=== PATIENT | male | born 1975 | race Caucasian/White ===

== ENCOUNTER 2019-06-08 14:04 | Inpatient (IN) | payer MEDICARE, MEDICAID ==
[~2019-06-08] VITALS: Ht 177.8 cm; Wt 65.5 kg
[2019-06-08 14:10] VITALS: BP 111/75
[2019-06-08 14:44] LABS: BASO % 0.3 % (0.0-1.0); EOS % 0.6 % (1.0-4.0); HEMATOCRIT 43.9 % (42.0-52.0); HEMOGLOBIN 14.7 g/dl (14.0-18.0); LYMPH # 0.8 10*3/uL (1.3-4.4); LYMPH % 11.9 % (27.0-41.0); MEAN CELL VOLUME 85.2 fl (80.0-94.0); MEAN CORPUSCULAR HGB 28.5 pg (27.0-31.0); MEAN CORPUSCULAR HGB CONC 33.5 g/dl (33.0-37.0); MEAN PLATELET VOLUME 9.6 fl (9.6-12.3); MONO # 0.9 10*3/uL (0.1-1.0); MONO % 13.2 % (3.0-9.0); NEUT % 73.7 % (47.0-73.0); PLATELET COUNT AUTOMATED 217 10*3/uL (130-400); RED BLOOD COUNT 5.15 10*6/uL (4.50-5.90); RED CELL DISTRI WIDTH 13.1 % (0-14.5); WHITE BLOOD COUNT 6.7 10*3/uL (4.8-10.8)
[2019-06-08 15:01] LABS: ALBUMIN 3.7 gm/dl (3.1-4.5); ALKALINE PHOSPHATASE 77 U/L (45-117); BUN 8 mg/dl (7-24); CHLORIDE 101 mmol/L (98-107); CREATININE 1.09 mg/dL (0.70-1.30); SGOT/AST 12 IU/L (3-35); SGPT/ALT 29 U/L (12-78); SODIUM 138 mmol/L (136-145); TOTAL PROTEIN 7.5 gm/dL (6.4-8.2)
[2019-06-08 15:08] LABS: ACETAMINOPHEN (TYLENOL) < 5.0 ug/ml (10-30); ETHYL ALCOHOL < 3.0 mg/dl (<3); TROPONIN I < 0.015 ng/ml (<0.045)
[2019-06-08 16:22] LABS: URINE AMPHETAMINES < 1000 (1000ng/ml); URINE BARBITURATES < 200 (200ng/ml); URINE BENZODIAZEPINES < 200 (200ng/ml); URINE CANNABINOIDS (THC) < 50 (50ng/ml); URINE COCAINE < 300 (300ng/ml); URINE METHADONE < 300 (300ng/ml); URINE OPIATES < 300 (300ng/ml)
[2019-06-08 16:25] LABS: URINE PHENCYCLIDINE < 25 (25ng/ml)
[2019-06-08 16:30] LABS: BILIRUBIN NEGATIVE (NEGATIVE); BLOOD TRACE-INTACT (NEGATIVE); CLARITY CLEAR (CLEAR); COLOR YELLOW (YELLOW); GLUCOSE NEGATIVE (NEGATIVE); KETONE NEGATIVE (NEGATIVE); SPECIFIC GRAVITY 1.015 (1.005-1.030); UROBILINOGEN 0.2 E.U./dl (0.2-1.0)
[2019-06-08 16:31] LABS: LEUKO ESTERASE 1+ (NEGATIVE); NITRITE POSITIVE (NEGATIVE)
[2019-06-08 16:32] LABS: EPITHELIAL CELLS 0-2
[2019-06-08 16:33] LABS: BACTERIA 4+
[2019-06-08] MEDS ORDERED: TRAZODONE50 MG PO (18:43)
[2019-06-08 20:10] VITALS: BP 111/96
--- NOTE | 2019-06-08 20:10 | NUR ---
A 44, admitted to 5E, under the services of ANA Cartagena DO with a diagnosis of UTI, METABOLIC ENCEPHALOPATHY Chief complaint is CHANGE IN MENTAL STATUS. Patient arrived via bed from ER. Monitor applied. Initial assessment completed. Vital signs taken and recorded. ANA CARTAGENA DO notified of admission to the unit. Orders received. See assessment for past medical history, medications and allergies. Patient and/or family oriented to unit. [facility] visitation policy reviewed. Clothing/patient valuable form completed. ROLDAN DIOP
--- NOTE | 2019-06-08 20:15 | NUR ---
PT HAS SCABS TO RIGHT LOWER LEG. NOTHING OPEN AT THIS TIME.
--- NOTE | 2019-06-08 20:30 | NUR ---
PT UNABLE TO VOICE MEDICATIONS. PER ANOTHER RN, MOTHER CALLED AND STATED [address] DAN NOTIFIED.
--- NOTE | 2019-06-08 21:00 | NUR ---
The assessment has been completed. NATI PARKS
[2019-06-09] VITALS: BP 96/67
--- NOTE | 2019-06-09 01:12 | NUR ---
PER DR. DAN, CHECK PT TEMPERATURE AT 0200. NO ORDERS AT THIS TIME
--- NOTE | 2019-06-09 02:05 | NUR ---
TYLENOL GIVEN PER ORDER FOR TEMP OF 100.8. SEE MAR
[2019-06-09 06:10] LABS: HEMATOCRIT 42.7 % (42.0-52.0); MEAN CELL VOLUME 84.6 fl (80.0-94.0); MEAN CORPUSCULAR HGB 27.7 pg (27.0-31.0); MEAN CORPUSCULAR HGB CONC 32.8 g/dl (33.0-37.0); MEAN PLATELET VOLUME 10.3 fl (9.6-12.3); PLATELET COUNT AUTOMATED 219 10*3/uL (130-400); RED BLOOD COUNT 5.05 10*6/uL (4.50-5.90); RED CELL DISTRI WIDTH 13.2 % (0-14.5); WHITE BLOOD COUNT 5.2 10*3/uL (4.8-10.8)
[2019-06-09 06:32] LABS: CHLORIDE 101 mmol/L (98-107); POTASSIUM 3.9 mmol/L (3.5-5.1); SODIUM 138 mmol/L (136-145)
[2019-06-09 06:38] LABS: BUN 9 mg/dl (7-24); CHOLESTEROL 159 mg/dL (<200); CREATININE 1.19 mg/dL (0.70-1.30); HDL CHOLESTEROL 45 mg/dl (40-60); LDL CHOLESTEROL 101 mg/dL (9-159); PHOSPHOROUS 4.3 mg/dL (2.5-4.9); TRIGLYCERIDES 64 mg/dl (<150); VLDL CHOLESTEROL 13 mg/dL (6-40)
[2019-06-09 07:48] LABS: VITAMIN D, 25-HYDROXY 36.3 ng/mL (30-100)
[2019-06-09 08:00] VITALS: BP 118/78
[2019-06-09 08:04] LABS: PLATELET SUFFICIENCY NORMAL (NORMAL); TOTAL CELLS COUNTED 100 #CELLS
[2019-06-09] MEDS ORDERED: AUSTEDO 9 MG (12:00)
[2019-06-09 16:00] VITALS: BP 148/75
--- NOTE | 2019-06-09 19:30 | NUR ---
PT RESTING IN BED. NO S/S OF DISTRESS NOTED. RESPS EASY AND NON LABORED. VSS. WHITE BOARD UPDATED. FAMILY AT BEDSIDE. SIDE RAILS UP. BED ALARM ON. CALL LIGHT WITHIN REACH.
--- NOTE | 2019-06-09 23:42 | NUR ---
WHEELCHAIR VAN [employer]PER[employer] STATES PT HAS A TEMP OF 101.6. MEDICATED WITH TYLENOL. WILL RE-CHECK IN TWO HOURS. PT RESTING IN BED. NO S/S OF DISTRESS NOTED. RESPS EASY AND NON LABORED. BED ALARM ON. CALL LIGHT WITHIN REACH.
[2019-06-10] VITALS: BP 113/87
--- NOTE | 2019-06-10 02:08 | NUR ---
PTS TEMP CURRENTLY 99.6. NO S/S OF DISTRESS. RESPS EASY AND NON LABORED. CALL LIGHT WITHIN REACH. BED ALARM ON.
--- NOTE | 2019-06-10 03:17 | NUR ---
24 HR chart check completed.
--- NOTE | 2019-06-10 04:23 | NUR ---
Patient sleeping. Respirations relaxed and easy. Siderails up . [place] on. BED ALARM ON. SIDE RAILS UP. CALL LIGHT WITHIN REACH. HISSOM,DIONI
[2019-06-10 08:00] VITALS: BP 120/78
[2019-06-10] MEDS ORDERED: CIPRO500 MG PO (11:28)
[2019-06-10] MEDS ORDERED: TOBRADEX 0.1%-0.5 ML OPH (11:28)
--- NOTE | 2019-06-10 13:50 | NUR ---
Patient is discharged to home. Contacted [facility] at [phone] who has patients wheel chair and will transport patient home. accounting clerks supervisor notified.
--- NOTE | 2019-06-10 14:05 | NUR ---
Discharge instructions reviewed with patient/family. Patient receptive and verbalizes understanding. Follow-up care arranged. Written instructions given to patient/family. JEREMY BERRY.
--- NOTE | 2019-06-10 14:06 | NUR ---
[facility] HERE TO TRANSPORT PATIENT HOME.
== END 2019-06-10 14:41 | disposition home or self-care (01) | DRG 689 ==
LOC: ED 14:04 → 5E 18:09 → EDHOLD 18:09 → 5E 18:59
PROVIDERS: Internal Medicine; Physician Assistant; ADMIT Internal Medicine
DX: N39.0 Urinary tract infection, site not specified (principal); G93.41 Metabolic encephalopathy; G10 Huntington's disease; R06.89 Other abnormalities of breathing; B96.1 Klebsiella pneumoniae [K. pneumoniae] as the cause of diseases classified elsewhere; R31.9 Hematuria, unspecified; E83.41 Hypermagnesemia; H10.33 Unspecified acute conjunctivitis, bilateral; Z79.899 Other long term (current) drug therapy